=== PATIENT | male | born 1955 | race Caucasian/White ===

== ENCOUNTER 2016-11-11 13:21 | Observation (INO) | payer MEDICAID ==
[~2016-11-11] VITALS: Ht 170.2 cm; Wt 85.0 kg
[~2016-11-11 13:21] MED LIST: AMLO10 PO; BLOOD PRESSURE; COLA100C3 PO; FERR325T PO; FURO40TA PO; GABA300C5 PO; GLIM2TAB PO; Glucometer; LONITEN; METO100T9 PO; MIRA33504 PO; POTA10TA2 PO; PRIN20TA2 PO; [UNRECOGNIZED DRUG - SUPPLY]; [UNRECOGNIZED DRUG - SUPPLY]; [UNRECOGNIZED DRUG - SUPPLY]; [UNRECOGNIZED DRUG - SUPPLY] TOP
[2016-11-11 13:24] VITALS: BP 189/79; PULSE 65; RESP 14; TEMP 98.2; O2SAT 97
[2016-11-11] MEDS ORDERED: MINO10TA PO (15:02)
[2016-11-11] MEDS ORDERED: ZOFR8TAB PO (15:02)
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
[2016-11-11 15:49] LABS: BASOPHIL % 0.8 % (0.0-2.0); EOSINOPHIL # 0.1 TH/MM3 (0-0.4); HEMATOCRIT 30.1 % (39.0-51.0); HEMO FLAGS DIFF FINAL; LYMPH % 23.5 % (9.0-44.0); LYMPHOCYTE # 1.1 TH/MM3 (1.0-4.8); MEAN CELL VOLUME 95.3 FL (80.0-100.0); MEAN CORPUSCULAR HEMOGLOBIN 33.5 PG (27.0-34.0); MEAN CORPUSCULAR HGB CONC 35.2 % (32.0-36.0); MONO % 6.7 % (0.0-8.0); PLATELET COUNT 117 TH/MM3 (150-450); RED BLOOD COUNT 3.16 MIL/MM3 (4.50-5.90); RED CELL DISTRIBUTION WIDTH 15.9 % (11.6-17.2); WHITE BLOOD COUNT 4.5 TH/MM3 (4.0-11.0)
[2016-11-11 15:53] LABS: APTT (PATIENT) 27.6 SEC (24.3-30.1); PROTHROMBIN TIME - PATIENT 11.3 SEC (9.8-11.6)
[2016-11-11 16:11] LABS: ALT (GPT) 36 U/L (12-78); ANION GAP 5 MEQ/L (5-15); AST (GOT) 42 U/L (15-37); BICARBONATE 29.1 MEQ/L (21.0-32.0); BLOOD UREA NITROGEN 44 MG/DL (7-18); CHLORIDE 105 MEQ/L (98-107); GLOMERULAR FILTRATION RATE 14 ML/MIN (>89); POTASSIUM 5.1 MEQ/L (3.5-5.1); SODIUM (NA) 139 MEQ/L (136-145)
[2016-11-11 16:14] LABS: ALKALINE PHOSPHATASE 127 U/L (45-117); TOTAL BILIRUBIN ADULT 0.5 MG/DL (0.2-1.0)
[2016-11-11 16:21] VITALS: RESP 16; O2SAT 97
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
[2016-11-11] MEDS ORDERED: ONDANSETRON HCL 4 MG/2 ML VIAL IVP PRN (18:00)
[2016-11-11] MEDS ORDERED: ACETAMINOPHEN 325 MG TAB PO PRN (18:00)
[2016-11-11] MEDS ORDERED: BISACODYL 10 MG SUPP PR PRN (18:00)
[2016-11-11] MEDS ORDERED: MAGNESIUM HYDROXIDE SUSP 30 ML CUP PO PRN (18:00)
[2016-11-11] MEDS ORDERED: SODIUM CHLORIDE 0.9% FLUSH 5 ML FLUSH FLUSH PRN (18:00)
[2016-11-11] MEDS ORDERED: NALOXONE HCL 0.4 MG/ML AMP IV PRN (18:00)
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
[2016-11-11 18:29] VITALS: O2SAT 96
[2016-11-11] MEDS ORDERED: DEXTROSE 50% IN WATER 50 ML VIAL(D50) IV PUSH PRN (18:45)
[2016-11-11] MEDS ORDERED: GLUCAGON 1 MG/ML VIAL OTHER PRN (18:45)
[2016-11-11] MEDS ORDERED: POLYETHYLENE GLYCOL 17 GM PKG PO PRN (18:45)
[2016-11-11 19:35] VITALS: BP 159/82; PULSE 64; RESP 22; TEMP 98.2; O2SAT 100
[2016-11-11] MEDS: INSULIN ASPART SUPPLEMENTAL SCALE SQ SCH (20:08)
[2016-11-11] MEDS: SODIUM CHLORIDE 0.9% FLUSH 5 ML FLUSH FLUSH SCH (20:23)
[2016-11-11] MEDS: DOCUSATE SODIUM 100 MG CAP PO SCH (20:23)
[2016-11-11] MEDS: FERROUS SULFATE 325 MG (65 MG ELEMENTAL IRON) TAB PO SCH (20:57)
[2016-11-11] MEDS: LISINOPRIL 20 MG TAB PO SCH (20:58)
[2016-11-12] VITALS (9 sets, daily range): BP systolic 149–201; BP diastolic 67–90; PULSE 51–77; RESP 18–22; TEMP 97.4–98.8; O2SAT 97–98
[2016-11-12] MEDS: INSULIN ASPART SUPPLEMENTAL SCALE SQ SCH ×4 (06:38→20:57)
[2016-11-12 07:20] LABS: AUTOMATED NEUTROPHIL # 2.2 TH/MM3 (1.8-7.7); BASOPHIL % 0.7 % (0.0-2.0); EOSINOPHIL # 0.1 TH/MM3 (0-0.4); EOSINOPHIL % 2.9 % (0.0-4.0); HEMATOCRIT 25.8 % (39.0-51.0); LYMPH % 29.8 % (9.0-44.0); LYMPHOCYTE # 1.1 TH/MM3 (1.0-4.8); MEAN CELL VOLUME 88.9 FL (80.0-100.0); MEAN CORPUSCULAR HGB CONC 33.7 % (32.0-36.0); MONO % 8.3 % (0.0-8.0); NEUT % 58.3 % (16.0-70.0); PLATELET COUNT 96 TH/MM3 (150-450); RED CELL DISTRIBUTION WIDTH 15.2 % (11.6-17.2); WHITE BLOOD COUNT 3.7 TH/MM3 (4.0-11.0)
[2016-11-12 07:42] LABS: HEMO FLAGS AUTO DIFF
[2016-11-12 07:50] LABS: BICARBONATE 27.9 MEQ/L (21.0-32.0); POTASSIUM 4.4 MEQ/L (3.5-5.1)
[2016-11-12] MEDS: METOPROLOL SUCCINATE 50 MG EXTENDED RELEASE TAB PO SCH (08:19)
[2016-11-12] MEDS: DOCUSATE SODIUM 100 MG CAP PO SCH ×2 (08:19→20:58)
[2016-11-12] MEDS: SODIUM CHLORIDE 0.9% FLUSH 5 ML FLUSH FLUSH SCH ×2 (08:20→20:58)
[2016-11-12 08:36] LABS: PLATELET ESTIMATE SMEAR LOW (NORMAL); PLATELET MORPHOLOGY NORMAL (NORMAL); SCAN/DIFF AUTO DIFF CONFIRMED
[2016-11-12] MEDS ORDERED: LISINOPRIL 20 MG TAB PO SCH (09:00)
[2016-11-12] MEDS ORDERED: FERROUS SULFATE 325 MG (65 MG ELEMENTAL IRON) TAB PO SCH (09:00)
[2016-11-12] MEDS ORDERED: cloNIDine HCL 0.2 MG TAB PO ONE (10:15)
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
--- NOTE | 2016-11-12 17:09 | HHI.PR ---
Subjective Remarks Follow up for inguinal hernia, CKD stage IV to V, possible need for dialysis. Mr. Bailey is doing well. No acute concerns. Denies any CP, SOB, fever, chills. Objective Vitals Vital Signs Date Time Temp Pulse Resp B/P Pulse Ox O2 Delivery O2 Flow Rate FiO2 11/12/16 15:30 98.0 53 18 156/71 97 11/12/16 11:40 98.2 59 19 173/77 98 11/12/16 08:00 68 11/12/16 07:37 98.0 68 19 201/90 98 11/12/16 04:49 97.4 77 22 152/79 98 11/12/16 00:42 60 11/12/16 00:06 97.4 64 20 149/67 97 11/11/16 19:35 98.2 64 22 159/82 100 11/11/16 18:29 96 21 I/O 11/11/16 11/11/16 11/11/16 11/12/16 11/12/16 11/12/16 06:59 14:59 22:59 06:59 14:59 22:59 Intake Total 32 ml Balance 32 ml Intake Oral Supplement 30 ml IV Total 2 ml # Voids 1 3 Result Diagram: 11/12/16 0602 11/12/16 0632 Imaging Last Impressions Abdomen/Pelvis CT 11/11/16 0000 Signed Impressions: Service Date/Time: Friday, November 11, 2016 17:36 - CONCLUSION: 1. Nodular enlarged liver consistent with probable cirrhosis. 2. Splenomegaly. 3. Moderate amount of ascites within the abdomen and pelvis. 4. Uncomplicated colonic diverticulosis. 5. Small left inguinal hernia containing some ascites. 6. Degenerative changes and multilevel spinal stenoses within the lumbar spine. 7. No acute obstructive uropathy. 8. Cardiomegaly and coronary artery calcifications. Terrance Garza MD Objective Remarks GENERAL: AOX3, NAD, SKIN: Warm and dry. HEAD: Normocephalic. EYES: No scleral icterus. No injection or drainage. NECK: Supple, trachea midline. No JVD or lymphadenopathy. CARDIOVASCULAR: Regular rate and rhythm without murmurs, gallops, or rubs. RESPIRATORY: Breath sounds equal bilaterally. No accessory muscle use. GASTROINTESTINAL: Abdomen soft, non-tender, nondistended. MUSCULOSKELETAL: No cyanosis. Has trace edema. BACK: Nontender without obvious deformity. No CVA tenderness. Procedures None. A/P Problem List: (1) CKD (chronic kidney disease), stage IV ICD Code: N18.4 Status: Acute (2) GERD (gastroesophageal reflux disease) ICD Code: K21.9 Status: Chronic (3) Anemia ICD Code: D64.9 Status: Chronic (4) HCV (hepatitis C virus) ICD Code: B19.20 Status: Chronic (5) Hypertension ICD Code: I10 Status: Chronic (6) DM type 2 (diabetes mellitus, type 2) ICD Code: E11.9 Status: Chronic (7) Inguinal hernia of left side without obstruction or gangrene ICD Code: K40.90 Status: Acute Assessment and Plan Patient is a 61 year old male who came in to the hospital per advice of his disaster or damage control specialist Dr. Goddard. Patient with stage IV chronic kidney disease and needs to have hemodialysis initiated. Admitted to observation unit for further evaluation. CT of the abdomen/ pelvis showed nodular enlarged liver consistent with probable cirrhosis. Splenomegaly. Moderate amount of ascites with abdomen and pelvis. Uncomplicated colonic diverticulosis. Small left inguinal hernia containing some ascites. Degenerative changes and multilevel spinal stenosis within lumbar spine. No acute obstructive uropathy. Cardiomegaly and coronary artery calcifications. Chronic kidney disease, stage IV, for dialysis- hemodialysis versus peritoneal dialysis Inguinal hernia - [employer] consulted - Discussed with Dr. Ramirez today. No emergent need for dialysis. - General surgery consult pending with regards to inguinal hernia and possible need for PD catheter now or in future. HTN - will restart home meds for now patient on metoprolol 100 mg ER daily, Lisinopril 20 mg daily, Norvasc 10 mg daily - Patient states that she takes metoprolol and Norvasc in the morning and lisinopril at night. - Clonidine PRN. DM 2 - insulin sliding scale, monitor Accu-Cheks - Will start basal insulin depending on trend of Accu-Cheks. So blood glucose well control. - Significant proteinuria Anemia - has been getting iron injections - Monitor CBC. Hep C, cirrhosis - follow in the outpatient Left inguinal hernia - will consult surgery, possible mesh placement, inpatient vs outpatient setting - CT showed small left inguinal hernia Full code. DVT prop SCDs Discharge Plan: If Inguinal hernia can be addressed in the outpatient setting, patient can be discharged tomorrow 11/13/2016. Eren Marshall DO Nov 12, 2016 17:09
[2016-11-12] MEDS: FERROUS SULFATE 325 MG (65 MG ELEMENTAL IRON) TAB PO SCH (20:58)
[2016-11-12] MEDS: LISINOPRIL 20 MG TAB PO SCH (20:58)
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
[2016-11-13 00:56] VITALS: BP 178/88; PULSE 90; RESP 18; TEMP 98.8; O2SAT 98
[2016-11-13] MEDS: cloNIDine HCL 0.1 MG TAB PO PRN ×2 (01:11→15:47)
[2016-11-13 04:40] VITALS: BP 147/77; PULSE 87; RESP 21; TEMP 98; O2SAT 98
[2016-11-13 05:50] LABS: ANION GAP 7 MEQ/L (5-15); BICARBONATE 27.6 MEQ/L (21.0-32.0); BLOOD UREA NITROGEN 46 MG/DL (7-18); CHLORIDE 106 MEQ/L (98-107); GLOMERULAR FILTRATION RATE 16 ML/MIN (>89); POTASSIUM 4.5 MEQ/L (3.5-5.1); SODIUM (NA) 141 MEQ/L (136-145); TRANSFERRIN IRON PROFILE 219 MG/DL (200-360)
[2016-11-13] MEDS: INSULIN ASPART SUPPLEMENTAL SCALE SQ SCH ×3 (06:30→16:21)
[2016-11-13 07:27] VITALS: BP 183/73; PULSE 53; RESP 18; TEMP 98.1; O2SAT 98
[2016-11-13] MEDS: DOCUSATE SODIUM 100 MG CAP PO SCH (08:19)
[2016-11-13] MEDS: SODIUM CHLORIDE 0.9% FLUSH 5 ML FLUSH FLUSH SCH (08:19)
[2016-11-13] MEDS: METOPROLOL SUCCINATE 50 MG EXTENDED RELEASE TAB PO SCH (08:19)
--- NOTE | 2016-11-13 08:50 | HHI.NPPN ---
Subjective Renal Failure: Chronic, Stage IV Interval History Sitting up in bed. Uneventful night. Renal function is better. (Adelaide Reveles) Review of Systems General General Remarks no acute concerns (Adelaide Reveles) Objective Data Data 11/12/16 11/13/16 19:00 07:00 Intake Total 32 ml Balance 32 ml Intake Oral Supplement 30 ml IV Total 2 ml # Voids 3 1 Vital Signs Date Time Temp Pulse Resp B/P Pulse Ox O2 Delivery O2 Flow Rate FiO2 11/13/16 07:27 98.1 53 18 183/73 98 11/13/16 05:18 21 11/13/16 04:40 98.0 87 21 147/77 98 11/13/16 00:56 98.8 90 18 178/88 98 11/12/16 22:42 51 11/12/16 21:06 98.8 55 18 195/88 98 11/12/16 15:30 98.0 53 18 156/71 97 11/12/16 11:40 98.2 59 19 173/77 98 (Adelaide Reveles) -: 11/12/16 0602 11/13/16 0505 Imaging Last 72 hours Impressions Abdomen/Pelvis CT 11/11/16 0000 Signed Impressions: Service Date/Time: Friday, November 11, 2016 17:36 - CONCLUSION: 1. Nodular enlarged liver consistent with probable cirrhosis. 2. Splenomegaly. 3. Moderate amount of ascites within the abdomen and pelvis. 4. Uncomplicated colonic diverticulosis. 5. Small left inguinal hernia containing some ascites. 6. Degenerative changes and multilevel spinal stenoses within the lumbar spine. 7. No acute obstructive uropathy. 8. Cardiomegaly and coronary artery calcifications. Terrance Garza MD (Adelaide Reveles) Physical Exam General Appearance: Well Developed, Well Nourished, No Acute Distress (Adelaide Reveles) Eyes Eye Exam: Pupils Equal (Adelaide Reveles) Throat Throat Exam: Oral Mucosa Reardan & Moist (Adelaide Reveles) Neck Neck Exam: Neck Supple (Adelaide Rveeles) Pulmonary Resp Exam: Clear Bilaterally, Breath Sounds Equal, No Distress (Adelaide Reveles) Cardiology CV Exam: Regular, Normal Sinus Rhythm (Adelaide Reveles) Gastrointestinal/Abdomen GI Exam: Soft, Non-Tender, Bowel Sounds Present (Adelaide Reveles) Musculoskeletal MS Exam: Joints Intact, Normal Tone (Adelaide Reveles) Integumentary Skin Exam: Clear, Warm, Dry (Adelaide Reveles) Extremeties Extremities Exam: No Edema, Pedal Pulses Palpable (Adelaide Reveles) Neurologic Neuro Exam: Alert, Awake, Oriented, Speech Clear, Moving All Extremities ( Adelaide Reveles) Psychiatric Psych Exam: Appropriate Responses (Adelaide Reveles) Assessment/Plan Discussed Condition With: Patient Problem List: (1) Chronic kidney disease (CKD), stage IV (severe) Plan: renal function has improved since admission although he has advanced renal dysfunction with heavy proteinuria, nearly 4 g underlying diabetic nephropathy suspected he will eventually need dialysis, but it is not imminent at this time surgery has evaluated, do not recommend placing PD catheter given ascites, liver disease, and hernia also unsure if he is physically/mentally able to perform PD on his own his potassium and bicarb level remain stable not demonstrating fluid overload in the meantime, low protein diet he does not need IVF I will have vascular evaluate for AVF placement, vein mapping ordered protect left arm from IV sticks, BP measurements he should be on JAKE or ARB at discharge avoid nephrotoxins (2) Anemia Plan: low iron stores, will give a dose of Venofer (3) Inguinal hernia of left side without obstruction or gangrene Plan: general surgery has evaluated, potentially have outpatient repair (4) DM type 2 (diabetes mellitus, type 2) Plan: diet controlled monitor glucose (5) Hypertension Plan: Blood pressure acceptable continue current medications (Adelaide Reveles) Plan patient was seen and examined. Discussed with Dr. Whyte. He has been consulted for AVF placement. General surgery note reviewed and appreciated. No immediate need for dialysis. (Yann Palacios MD) Adelaide Reveles Nov 13, 2016 08:50 Yann Palacios MD Nov 14, 2016 08:09
[2016-11-13] MEDS ORDERED: IRON SUCROSE INJ 100 MG in SODIUM CHLORIDE 0.9% INJ 100 ML IV ONE (10:00)
--- NOTE | 2016-11-13 10:43 | HHI.PR ---
Subjective Remarks Follow up for CKD Stage IV, inguinal hernia in a patient with cirrhosis. Mr. Bailey is doing well. Denies any acute concerns. Denies any CP, SOB, fever, chills. Objective Vitals Vital Signs Date Time Temp Pulse Resp B/P Pulse Ox O2 Delivery O2 Flow Rate FiO2 11/13/16 07:27 98.1 53 18 183/73 98 11/13/16 05:18 21 11/13/16 04:40 98.0 87 21 147/77 98 11/13/16 00:56 98.8 90 18 178/88 98 11/12/16 22:42 51 11/12/16 21:06 98.8 55 18 195/88 98 11/12/16 15:30 98.0 53 18 156/71 97 11/12/16 11:40 98.2 59 19 173/77 98 I/O 11/12/16 11/12/16 11/12/16 11/13/16 11/13/16 11/13/16 07:00 15:00 23:00 07:00 15:00 23:00 Intake Total 32 ml Balance 32 ml Intake Oral Supplement 30 ml IV Total 2 ml # Voids 3 1 Result Diagram: 11/12/16 0602 11/13/16 0505 Imaging Last Impressions Upper Extremity Ultrasound 11/13/16 1026 Signed Impressions: Service Date/Time: Sunday, November 13, 2016 12:38 - CONCLUSION: There is occlusive thrombus within the right cephalic vein at the level of the mid forearm in the region of the PICC line and occlusive thrombus within the left mid cephalic vein. Terrance Garza MD Abdomen/Pelvis CT 11/11/16 0000 Signed Impressions: Service Date/Time: Friday, November 11, 2016 17:36 - CONCLUSION: 1. Nodular enlarged liver consistent with probable cirrhosis. 2. Splenomegaly. 3. Moderate amount of ascites within the abdomen and pelvis. 4. Uncomplicated colonic diverticulosis. 5. Small left inguinal hernia containing some ascites. 6. Degenerative changes and multilevel spinal stenoses within the lumbar spine. 7. No acute obstructive uropathy. 8. Cardiomegaly and coronary artery calcifications. Terrance Garza MD Objective Remarks GENERAL: AOX3, NAD, SKIN: Warm and dry. HEAD: Normocephalic. EYES: No scleral icterus. No injection or drainage. NECK: Supple, trachea midline. No JVD or lymphadenopathy. CARDIOVASCULAR: Regular rate and rhythm without murmurs, gallops, or rubs. RESPIRATORY: Breath sounds equal bilaterally. No accessory muscle use. GASTROINTESTINAL: Abdomen soft, non-tender, nondistended. MUSCULOSKELETAL: No cyanosis. Has trace edema. BACK: Nontender without obvious deformity. No CVA tenderness. Procedures None. A/P Problem List: (1) CKD (chronic kidney disease), stage IV ICD Code: N18.4 Status: Acute (2) GERD (gastroesophageal reflux disease) ICD Code: K21.9 Status: Chronic (3) Anemia ICD Code: D64.9 Status: Chronic (4) HCV (hepatitis C virus) ICD Code: B19.20 Status: Chronic (5) Hypertension ICD Code: I10 Status: Chronic (6) DM type 2 (diabetes mellitus, type 2) ICD Code: E11.9 Status: Chronic (7) Inguinal hernia of left side without obstruction or gangrene ICD Code: K40.90 Status: Acute Assessment and Plan Patient is a 61 year old male who came in to the hospital per advice of his granite polisher Dr. Goddard. Patient with stage IV chronic kidney disease and needs to have hemodialysis initiated. Admitted to observation unit for further evaluation. CT of the abdomen/ pelvis showed nodular enlarged liver consistent with probable cirrhosis. Splenomegaly. Moderate amount of ascites with abdomen and pelvis. Uncomplicated colonic diverticulosis. Small left inguinal hernia containing some ascites. Degenerative changes and multilevel spinal stenosis within lumbar spine. No acute obstructive uropathy. Cardiomegaly and coronary artery calcifications. Chronic kidney disease, stage IV, for dialysis- hemodialysis versus peritoneal dialysis Inguinal hernia - Structural Metal Worker consulted - No emergent need for dialysis. - General surgery (Dr. Coronado) consulted and will proceed with surgery if medically cleared for surgery. - Patient's MELD Score is 19 (19.6% estimated 3 month mortality) based on Creatinine 3.85, Bilirubin 0.5, INR 1.0 and Sodium 141. Since MELD score is > 15, We would not recommend hernia surgery or Non-emergent surgery at this point. - Similarly, Child-Tavares score 9 with a abdominal surgery sergio-operative mortality 30%. HTN - will restart home meds for now patient on metoprolol 100 mg ER daily, Lisinopril 20 mg daily, Norvasc 10 mg daily - Patient states that she takes metoprolol and Norvasc in the morning and lisinopril at night. - Clonidine PRN. DM 2 - insulin sliding scale, monitor Accu-Cheks - Will start basal insulin depending on trend of Accu-Cheks. So blood glucose well control. - Significant proteinuria Anemia - has been getting iron injections - Monitor CBC. Hep C, cirrhosis - follow in the outpatient Left inguinal hernia - will consult surgery, possible mesh placement, inpatient vs outpatient setting - CT showed small left inguinal hernia Full code. DVT prop SCDs I discussed with Dr. Donell Coronado (General surgery) around 5:30PM. We agreed that with MELD Score of 19, it would be a high risk to do non-emergent surgery such as hernia repair. Risk is higher with open approach which is what Dr. Coronado would do. Discussed with Vascular surgery earlier - they plan to follow patient in the outpatient setting for AV fistula. Will discharge patient home with follow up with Vascular surgery. Eren Marshall DO Nov 13, 2016 10:43
[2016-11-13] MEDS ORDERED: FURO40TA PO (10:49)
[2016-11-13 11:20] VITALS: BP 161/71; PULSE 48; RESP 18; TEMP 97.3; O2SAT 96
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
[2016-11-13 15:37] VITALS: BP 192/75; PULSE 54; RESP 18; TEMP 97.7; O2SAT 98
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
--- NOTE | 2016-11-13 17:42 | HHI.DS ---
Discharge Summary Admission Date Nov 11, 2016 at 17:53 Discharge Date: Nov 13, 2016 Admitting Diagnosis End-stage renal disease, hemodialysis to be initiated (1) CKD (chronic kidney disease), stage IV ICD Code: N18.4 Diagnosis: Principal (2) GERD (gastroesophageal reflux disease) ICD Code: K21.9 (3) Anemia ICD Code: D64.9 (4) HCV (hepatitis C virus) ICD Code: B19.20 (5) Hypertension ICD Code: I10 (6) DM type 2 (diabetes mellitus, type 2) ICD Code: E11.9 (7) Inguinal hernia of left side without obstruction or gangrene ICD Code: K40.90 Diagnosis: Principal Procedures None. Brief History - From Admission Patient is a 61 year old male who came in to the hospital per advice of his distributor of directories Dr. Goddard. Patient with stage IV chronic kidney disease and needs to have hemodialysis initiated. Patient complains of left groin pain that has been bothering him 2 weeks but hurting him more often now than usual, rated 8/10 aggravated by standing he takes Tylenol for it or if he is resting it gets relief. Reports that he has some constipation, have gone to have a bowel movement today however he thinks it's not enough. He takes prune juice at home. Patient reports he has liver cirrhosis, hep C, diabetes, and hypertension. Denies SOB/ dyspnea. Denies chest pain, palpitations, headaches , dizziness. Denies fevers, chills, n/v/d. Labs reviewed. CBC anemia 10.6/30.1, as per patient and he gets iron shots weekly. BUS and 44, creatinine 4.31, estimated GFR 14, calcium 8.4, elevated AST 42, alkaline phosphatase elevated 127. CT of the abdomen/ pelvis showed nodular enlarged liver consistent with probable cirrhosis. Splenomegaly. Moderate amount of ascites with abdomen and pelvis. Uncomplicated colonic diverticulosis. Small left inguinal hernia containing some ascites. Degenerative changes and multilevel spinal stenosis within lumbar spine. No acute obstructive uropathy. Cardiomegaly and coronary artery calcifications. CBC/BMP: 11/12/16 0602 11/13/16 0505 Significant Findings Laboratory Tests Test 11/11/16 11/12/16 11/12/16 11/12/16 15:00 06:02 06:32 12:30 Red Blood Count 3.16 MIL/MM3 2.90 MIL/MM3 (4.50-5.90) (4.50-5.90) Hemoglobin 10.6 GM/DL 8.7 GM/DL (13.0-17.0) (13.0-17.0) Hematocrit 30.1 % 25.8 % (39.0-51.0) (39.0-51.0) Platelet Count 117 TH/MM3 96 TH/MM3 (150-450) (150-450) Blood Urea Nitrogen 44 MG/DL (7-18) 42 MG/DL (7-18) Creatinine 4.31 MG/DL 4.04 MG/DL (0.60-1.30) (0.60-1.30) Estimat Glomerular Filtration 14 ML/MIN (>89) 15 ML/MIN (>89) Rate Calcium Level 8.4 MG/DL 7.9 MG/DL (8.5-10.1) (8.5-10.1) Aspartate Amino Transf 42 U/L (15-37) (AST/SGOT) Alkaline Phosphatase 127 U/L (45-117) White Blood Count 3.7 TH/MM3 (4.0-11.0) Monocytes (%) (Auto) 8.3 % (0.0-8.0) Platelet Estimate LOW (NORMAL) Random Glucose 72 MG/DL (74-106) Urine Microalbumin/Creatinine 3952 MG/G CRE Ratio (0-30) Test 11/13/16 05:05 Blood Urea Nitrogen 46 MG/DL (7-18) Creatinine 3.85 MG/DL (0.60-1.30) Estimat Glomerular Filtration 16 ML/MIN (>89) Rate Random Glucose 68 MG/DL (74-106) Calcium Level 7.8 MG/DL (8.5-10.1) Iron Level 50 MCG/DL (65-175) Percent Iron Saturation 16.3 % (20-50) Albumin 2.7 GM/DL (3.4-5.0) Imaging Last Impressions Upper Extremity Ultrasound 11/13/16 1026 Signed Impressions: Service Date/Time: Sunday, November 13, 2016 12:38 - CONCLUSION: There is occlusive thrombus within the right cephalic vein at the level of the mid forearm in the region of the PICC line and occlusive thrombus within the left mid cephalic vein. Terrance Garza MD Abdomen/Pelvis CT 11/11/16 0000 Signed Impressions: Service Date/Time: Friday, November 11, 2016 17:36 - CONCLUSION: 1. Nodular enlarged liver consistent with probable cirrhosis. 2. Splenomegaly. 3. Moderate amount of ascites within the abdomen and pelvis. 4. Uncomplicated colonic diverticulosis. 5. Small left inguinal hernia containing some ascites. 6. Degenerative changes and multilevel spinal stenoses within the lumbar spine. 7. No acute obstructive uropathy. 8. Cardiomegaly and coronary artery calcifications. Terrance Garza MD PE at Discharge GENERAL: AOX3, NAD, SKIN: Warm and dry. HEAD: Normocephalic. EYES: No scleral icterus. No injection or drainage. NECK: Supple, trachea midline. No JVD or lymphadenopathy. CARDIOVASCULAR: Regular rate and rhythm without murmurs, gallops, or rubs. RESPIRATORY: Breath sounds equal bilaterally. No accessory muscle use. GASTROINTESTINAL: Abdomen soft, non-tender, nondistended. MUSCULOSKELETAL: No cyanosis. Has trace edema. BACK: Nontender without obvious deformity. No CVA tenderness. Pt update on day of discharge Mr. Bailey is doing well. No acute concerns. Denies any fever, chills. Hospital Course Patient is a 61 year old male who came in to the hospital per advice of his distributor of directories Dr. Goddard. Patient with stage IV chronic kidney disease and needs to have hemodialysis initiated. Admitted to observation unit for further evaluation. CT of the abdomen/ pelvis showed nodular enlarged liver consistent with probable cirrhosis. Splenomegaly. Moderate amount of ascites with abdomen and pelvis. Uncomplicated colonic diverticulosis. Small left inguinal hernia containing some ascites. Degenerative changes and multilevel spinal stenosis within lumbar spine. No acute obstructive uropathy. Cardiomegaly and coronary artery calcifications. Chronic kidney disease, stage IV, for dialysis- hemodialysis versus peritoneal dialysis Inguinal hernia - Nursing Associate consulted - No emergent need for dialysis. - General surgery (Dr. Coronado) consulted and will proceed with surgery if medically cleared for surgery. - Patient's MELD Score is 19 (19.6% estimated 3 month mortality) based on Creatinine 3.85, Bilirubin 0.5, INR 1.0 and Sodium 141. Since MELD score is > 15, We would not recommend hernia surgery or Non-emergent surgery at this point. - Similarly, Child-Tavares score 9 with a abdominal surgery sergio-operative mortality 30%. HTN - will restart home meds for now patient on metoprolol 100 mg ER daily, Lisinopril 20 mg daily, Norvasc 10 mg daily - Patient states that she takes metoprolol and Norvasc in the morning and lisinopril at night. - Clonidine PRN. DM 2 - insulin sliding scale, monitor Accu-Cheks - Will start basal insulin depending on trend of Accu-Cheks. So blood glucose well control. - Significant proteinuria Anemia - has been getting iron injections Hep C, cirrhosis - follow in the outpatient Left inguinal hernia - will consult surgery, possible mesh placement, inpatient vs outpatient setting - CT showed small left inguinal hernia Full code. DVT prop SCDs I discussed with Dr. Donell Coronado (General surgery) around 5:30PM. We agreed that with MELD Score of 19, it would be a high risk to do non-emergent surgery such as hernia repair. Risk is higher with open approach which is what Dr. Coronado would do. Discussed with Vascular surgery earlier - they plan to follow patient in the outpatient setting for AV fistula. Will discharge patient home with follow up with Vascular surgery. Pt Condition on Discharge: Good Discharge Disposition: Discharge Home Discharge Time: > 30 minutes Discharge Instructions DIET: Follow Instructions for: Low Protein Diet Activities you can perform: Regular-No Restrictions Follow up Referrals: Nephrology - 1 Week with Wing Goddard MD PCP Follow-up - 1 Week Surgical - 2 Weeks with Donell Coronado MD Vascular Surgery - 1 Week with Ra Whyte V. DO New Medications: Oxycodone-Acetaminophen (Percocet) 5-325 mg Tab 1 TAB PO Q6H PRN PAIN #15 Ref 0 TAB Changed Medications: Furosemide (Furosemide) 40 Mg Tab 40 MG PO DAILY Fluid #30 Ref 0 TAB (Changed from: 80 MG) Continued Medications: Amlodipine (Norvasc) 10 Mg Tab 10 MG PO DAILY Blood Pressure Management #30 Ref 0 TAB Docusate Sodium (Colace) 100 Mg Cap 100 MG PO BID Constipation #60 Ref 0 CAP Ferrous Sulfate (Ferrous Sulfate) 325 Mg Tab 325 MG PO DAILY Nutritional Supplement #30 Ref 0 TAB Lisinopril (Prinivil) 20 Mg Tab 20 MG PO DAILY Blood Pressure Management #30 Ref 0 TAB Metoprolol Succinate ER 24 HR (Metoprolol Succinate ER 24 HR) 100 Mg Tab 100 MG PO DAILY #30 Ref 0 TAB Minoxidil (Minoxidil) 10 Mg Tab 40 MG PO DAILY Blood Pressure Management #30 Ref 0 TAB Ondansetron (Zofran) 8 Mg Tab 8 MG PO DAILY PRN NAUSEA OR VOMITING Ref 0 TAB Polyethylene Glycol 3350 Powder (Miralax Powder) 17 Gm Powd 17 GM PO DAILY Mix and dissolve one measuring cap-ful (17 grams) in water or juice. PRN Constipation #1 Ref 0 BOTTLE Potassium Chloride ER (Potassium Chloride ER) 10 Meq Tab 10 MEQ PO DAILY Take only when taking Lasix #30 Ref 0 TAB ([AccuChk Test Strips]) 1 BOX To check blood sugar level ([Blood Pressure Kit]) 1 KIT DAILY Check blood pressure daily ([Diabetic Sneaker]) 1 Yearly ([Gluco Test Strips]) 1 BOX DAILY To check blood sugar level ([Glucometer]) 1 DAILY To check blood sugar level ([loniten]) 10 MG Eren Marshall DO Nov 13, 2016 17:42
[2016-11-13] MEDS ORDERED: PERC5TAB12 PO (19:41)
--- NOTE | 2016-11-13 19:44 | HHI.PR ---
Addendum to Inpatient Note Addendum Reason: Additional Documentation Additional Information wrote discharge prescription for percocet 5/325 po q6hrs prn for pain - total 15 tabs - as requested by pt's daytime [facility] Erich Serna MD Nov 13, 2016 19:44
--- NOTE | 2016-11-13 21:52 | HHI.PR ---
Subjective Subjective Notes no acute issues, mild pain in groin, asymptomatic when lying flat Objective Vitals/I&O Vital Signs Date Time Temp Pulse Resp B/P Pulse Ox O2 Delivery O2 Flow Rate FiO2 11/13/16 15:37 97.7 54 18 192/75 98 11/13/16 05:18 21 11/11/16 16:21 Room Air Labs Laboratory Tests Test 11/13/16 05:05 Sodium Level 141 Potassium Level 4.5 Chloride Level 106 Carbon Dioxide Level 27.6 Anion Gap 7 Blood Urea Nitrogen 46 Creatinine 3.85 Estimat Glomerular Filtration 16 Rate Random Glucose 68 Calcium Level 7.8 Phosphorus Level 4.7 Iron Level 50 Total Iron Binding Capacity 307 Percent Iron Saturation 16.3 Albumin 2.7 Cardiovascular: Regular Lungs: Clear Abdomen: Other (left inguinal hernia, reducible, mild ttp) A/P Assessment and Plan multiple medical issues, cirrhosis MELD score 19, reducible LIH, Need of dialysis access plan ok for renal/hepatic diet discussed with primary Dr. Marshall- patient is high risk for surgery with MELD 19 will defer elective surgery recommend support strap for hernia will continue non operative treatment discussed with patient Donell Coronado MD Nov 13, 2016 21:52
[2017-02-13] MEDS ORDERED: LACT10SO PO (06:25)
[2017-04-02] MEDS ORDERED: FURO40TA PO (09:16)
[2017-04-02] MEDS ORDERED: FERR200T PO (09:20)
[2017-04-02] MEDS ORDERED: GABA100C4 PO (09:22)
[2017-04-02] MEDS ORDERED: PROC20005 SQ (09:49)
== END 2016-11-14 00:12 | disposition home or self-care (01) ==
LOC: NEPE 13:21 → NEDA 17:53 → NEPGCP 19:27
PROVIDERS: ADMIT Hospitalist; ATTEND Hospitalist
DX: N18.6 End stage renal disease (principal); I13.11 Hypertensive heart and chronic kidney disease without heart failure, with stage 5 chronic kidney disease, or end stage renal disease; I25.10 Atherosclerotic heart disease of native coronary artery without angina pectoris; E11.21 Type 2 diabetes mellitus with diabetic nephropathy; B19.20 Unspecified viral hepatitis C without hepatic coma; D64.9 Anemia, unspecified; K21.9 Gastro-esophageal reflux disease without esophagitis; I82.613 Acute embolism and thrombosis of superficial veins of upper extremity, bilateral; K40.90 Unilateral inguinal hernia, without obstruction or gangrene, not specified as recurrent; K57.30 Diverticulosis of large intestine without perforation or abscess without bleeding; K74.60 Unspecified cirrhosis of liver; R18.8 Other ascites; K59.00 Constipation, unspecified; H91.90 Unspecified hearing loss, unspecified ear; M48.06 Spinal stenosis, lumbar region; Z72.0 Tobacco use; Z99.2 Dependence on renal dialysis
CPT/HCPCS: 74176; 80048; 80053; 80069; 82043; 82948; 83540; 83550; 85025; 85610; 85730; 93970; 93998; 99284; G0378; J1756; J1815

== ENCOUNTER → 2016-12-10 | Day surgery (SDC) | payer MEDICAID ==
[~2016-12-10] VITALS: Ht 170.2 cm; Wt 84.4 kg
[~2016-12-10] MED LIST changes: +ACET500T3 PO; +AMLO10TA2 PO; +DOCU100C PO; +FAMOTIDINE 20 MG/2 ML VIAL ONE; +FERR1TAB7 PO; +FERR200T PO; +GABA100C4 PO; -GABA300C5 PO; -GLIM2TAB PO; +HEPARIN SODIUM - IV 10,000 UNITS/10 ML VIAL ONE; +HEPARIN SODIUM - SQ 10,000 UNITS/ML VIAL ONE; +INSULIN HUMAN REGULAR 1,000 UNITS/10 ML VIAL SQ PRN; +LACT10SO PO; +LACTATED RINGER'S 1000 ML IV SCH; +LISI-515 PO; +METOCLOPRAMIDE HCL 10 MG/2 ML VIAL ONE; +METOPROLOL TARTRATE 25 MG TAB PO PRN; +MIDAZOLAM HCL 5 MG/5 ML VIAL ONE; +MINO10TA PO; +NEOSTIGMINE METHYLSULFATE 10 MG/10 ML VIAL IV PUSH ONE; +OXYC1TAB63 PO; +PERC5TAB12 PO; +PHENYLEPH/NS 1000 MCG/10 ML SYR IV ONE; +POTA10CA PO; +PROC20005 SQ; +PROPOFOL 200 MG/20 ML AMP IV ONE; +ROPIVACAINE 0.5% PF INJ 30 ML VIAL NB ONE; +SODIUM CHLORID 0.9% 500 ML INJ 500 ML IV ONE; +SODIUM CHLORID 0.9% 500 ML IV SCH; +VANCOMYCIN HCL 1000 MG VIAL ONE; +ZOFR8TAB PO; +ePHEDrine/NS 25 MG/5 ML SYR IV ONE; +fentaNYL CITRATE 250 MCG/5 ML AMP ONE
[2016-12-10 07:38] VITALS: BP 169/76; PULSE 58; RESP 20; TEMP 98; O2SAT 99
[2016-12-10 09:09] LABS: AUTOMATED NEUTROPHIL # 3.1 TH/MM3 (1.8-7.7); BASOPHIL % 0.6 % (0.0-2.0); EOSINOPHIL # 0.1 TH/MM3 (0-0.4); EOSINOPHIL % 2.8 % (0.0-4.0); HEMATOCRIT 27.1 % (39.0-51.0); HEMO FLAGS DIFF FINAL; LYMPH % 21.6 % (9.0-44.0); MEAN CELL VOLUME 91.1 FL (80.0-100.0); MEAN CORPUSCULAR HEMOGLOBIN 32.5 PG (27.0-34.0); MEAN CORPUSCULAR HGB CONC 35.7 % (32.0-36.0); MONO % 8.5 % (0.0-8.0); NEUT % 66.5 % (16.0-70.0); PLATELET COUNT 116 TH/MM3 (150-450); RED BLOOD COUNT 2.97 MIL/MM3 (4.50-5.90); RED CELL DISTRIBUTION WIDTH 16.2 % (11.6-17.2); WHITE BLOOD COUNT 4.7 TH/MM3 (4.0-11.0)
[2016-12-10 09:20] LABS: APTT (PATIENT) 27.7 SEC (24.3-30.1); INTERNATIONAL NORMALIZED RATIO 1.1 RATIO; PROTHROMBIN TIME - PATIENT 11.7 SEC (9.8-11.6)
[2016-12-10 09:30] LABS: BICARBONATE 28.2 MEQ/L (21.0-32.0); POTASSIUM 4.6 MEQ/L (3.5-5.1)
--- NOTE | 2016-12-10 09:30 | RADRPT ---
EXAM DATE/TIME: 12/10/2016 08:18 [facility] COMPARISON: CHEST SINGLE AP, May 26, 2015, 10:31. INDICATIONS : Evaluate for pneumonia, pneumothorax or communicable disease. Pre-op AV fistula surgery 12/10/2016. MEDICAL HISTORY: Hypertension. SURGICAL HISTORY: None. ENCOUNTER: Initial ACUITY: 1 day PAIN SCORE: 0/10 LOCATION: Bilateral chest FINDINGS: The heart is stable. The pulmonary vascular patter is normal. The lungs are clear. CONCLUSION: No acute cardiopulmonary disease. Terrance Garza MD on December 10, 2016 at 9:12 Board Certified Radiologist. This report was verified electronically.
[2016-12-10 09:31] LABS: BLOOD, URINE NEG (NEG); COMMENT (UR) CULT NOT INDICATED; CULTURE IF INDICATED CULT NOT INDICATED; GLUCOSE,URINE NEG (NEG); KETONE, URINE NEG (NEG); NITRITE,URINE NEG (NEG); PH, URINE 6.5 (5.0-8.5); SQUAMOUS EPITHELIAL CELL URINE <1 /hpf (0-5); URINE COLOR YELLOW (YELLW/STRAW)
[2016-12-10 16:40] VITALS: BP 151/68; PULSE 70; RESP 16; TEMP 97.4; O2SAT 98
--- NOTE | 2016-12-10 17:58 | EKG ---
Date Performed: 12/10/2016 Time Performed: 08:11:49 PTAGE: 61 years EKG: SINUS BRADYCARDIA MODERATE INTRAVENTRICULAR CONDUCTION DELAY NONSPECIFIC T-WAVE ABNORMALITY Since previous tracing, no significant change noted ABNORMAL ECG PREVIOUS TRACING : 05/26/2015 10.13 DOCTOR: Gamal Kaminski Interpretating Date/Time 12/10/2016 17:55:56
--- NOTE | 2016-12-11 07:30 | MP ---
cc: SRAVAN GARRISON DATE OF OPERATION 12/10/2016 PREOPERATIVE DIAGNOSIS End-stage renal disease. POSTOPERATIVE DIAGNOSIS End-stage renal disease. PROCEDURE Right upper extremity radiocephalic A-V fistula. SURGEON DO Pato IV FLUIDS 300 cc crystalloid. ESTIMATED BLOOD LOSS Minimal. URINE OUTPUT Not calculated. SEDATION Supraclavicular nerve block and general endotracheal anesthesia. PROCEDURE The patient's right upper extremity was prepped and draped in a sterile fashion after beginning 1 gram of IV vancomycin with history of indwelling catheter long-term. Incision was made over the wrist on the lateral aspect. This was about 3 cm and longitudinal. This was made with a scalpel, then electrocautery dissection was made down to the radial artery and the cephalic vein. The cephalic vein side branches were ligated with 2-0 and 4-0 silks as needed. The distal radial artery was quite calcified but intact. It was mobilized with two vessel loops. I did give the patient 3000 units of heparin. I made a longitudinal incision of the radial artery with an 11-blade and Novak scissors. The distal cephalic vein was divided and the distal cephalic vein was ligated with a 2-0 tie. I performed an end-to-side anastomosis with my wrist cephalic vein to the radial artery. There was a good thrill at the end of the case that could be palpated. The patient still had adequate palmar arch signals well. I closed in layers with a 2-0 vicryl and 4-0 monocryl stitch with dermabond applied to the incision. The patient tolerated procedure well. DO MARIO Guaman/DONA /3:08 PM /7:23 AM [facility]
== END | disposition home or self-care (01) ==
LOC: HSDC 07:29
PROVIDERS: ATTEND Surgery
DX: N18.6 End stage renal disease (principal); I12.0 Hypertensive chronic kidney disease with stage 5 chronic kidney disease or end stage renal disease; E78.5 Hyperlipidemia, unspecified; J44.9 Chronic obstructive pulmonary disease, unspecified
CPT/HCPCS: 01844; 36818; 64415; 71010; 76937; 80048; 81001; 85025; 85610; 85730; 86850; 86900; 86901; 93005; J1644; J2250; J2370; J2710; J2765; J2795; J3010; J3370; J7040

== ENCOUNTER 2017-01-09 09:44 | Emergency (ER) | payer MEDICAID ==
[~2017-01-09] VITALS: Ht 170.2 cm; Wt 84.0 kg
[~2017-01-09 09:44] MED LIST changes: -ACET500T3 PO; -AMLO10TA2 PO; -COLA100C3 PO; -DOCU100C PO; -FAMOTIDINE 20 MG/2 ML VIAL ONE; -FERR1TAB7 PO; -FERR200T PO; -GABA100C4 PO; -HEPARIN SODIUM - IV 10,000 UNITS/10 ML VIAL ONE; -HEPARIN SODIUM - SQ 10,000 UNITS/ML VIAL ONE; -INSULIN HUMAN REGULAR 1,000 UNITS/10 ML VIAL SQ PRN; -LACT10SO PO; -LACTATED RINGER'S 1000 ML IV SCH; -LISI-515 PO; -METOCLOPRAMIDE HCL 10 MG/2 ML VIAL ONE; -METOPROLOL TARTRATE 25 MG TAB PO PRN; -MIDAZOLAM HCL 5 MG/5 ML VIAL ONE; -MIRA33504 PO; -NEOSTIGMINE METHYLSULFATE 10 MG/10 ML VIAL IV PUSH ONE; -OXYC1TAB63 PO; -PERC5TAB12 PO; -PHENYLEPH/NS 1000 MCG/10 ML SYR IV ONE; -POTA10CA PO; -PROC20005 SQ; -PROPOFOL 200 MG/20 ML AMP IV ONE; -ROPIVACAINE 0.5% PF INJ 30 ML VIAL NB ONE; -SODIUM CHLORID 0.9% 500 ML INJ 500 ML IV ONE; -SODIUM CHLORID 0.9% 500 ML IV SCH; -VANCOMYCIN HCL 1000 MG VIAL ONE; -ePHEDrine/NS 25 MG/5 ML SYR IV ONE; -fentaNYL CITRATE 250 MCG/5 ML AMP ONE
[2017-01-09 09:45] VITALS: BP 177/79; PULSE 66; RESP 15; TEMP 97.9; O2SAT 99
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
[2017-01-09] MEDS ORDERED: METO100T9 PO (10:29)
[2017-01-09] MEDS ORDERED: ZOFR8TAB PO (10:29)
[2017-01-09] MEDS ORDERED: LISI-515 PO (10:29)
[2017-01-09] MEDS ORDERED: MINO10TA PO (10:29)
[2017-01-09] MEDS ORDERED: AMLO10TA2 PO (10:29)
[2017-01-09] MEDS ORDERED: DOCU100C PO (10:29)
[2017-01-09] MEDS ORDERED: ACET500T3 PO (10:29)
[2017-01-09] MEDS ORDERED: FURO40TA PO (10:29)
[2017-01-09] MEDS ORDERED: POTA10CA PO (10:29)
[2017-01-09] MEDS ORDERED: FERR1TAB7 PO (10:29)
[2017-01-09] MEDS ORDERED: OXYC1TAB63 PO (10:29)
[2017-01-09] MEDS ORDERED: SODIUM CHLORIDE 0.9% FLUSH 5 ML FLUSH IVF PRN (10:30)
[2017-01-09] MEDS ORDERED: DIATRIZOATE MEGLUM/DIATRIZOATE SOD 9 ML CUP ONE (10:36)
--- NOTE | 2017-01-09 11:06 | RADRPT ---
EXAM DATE/TIME: 01/09/2017 10:31 [facility] COMPARISON: CHEST SINGLE AP, December 10, 2016, 8:18. INDICATIONS : Upper right abdomen pain with distention. Hernia surgery 3-17. MEDICAL HISTORY : None. SURGICAL HISTORY : Hernia right ENCOUNTER: Initial ACUITY: 3 days PAIN SCORE: 10/10 LOCATION: Right abdomen. FINDINGS: A single view of the chest demonstrates the lungs to be symmetrically aerated without evidence of mas s, infiltrate or effusion. The cardiomediastinal contours are prominent. Osseous structures are inta ct. CONCLUSION: 1. No acute findings. Mild cardiomegaly. Hugo Cohen MD on January 09, 2017 at 11:03 Board Certified Radiologist. This report was verified electronically.
[2017-01-09 11:24] LABS: ALKALINE PHOSPHATASE 180 U/L (45-117); ALT (GPT) 24 U/L (12-78); TOTAL BILIRUBIN ADULT 0.5 MG/DL (0.2-1.0)
[2017-01-09 11:43] LABS: AUTOMATED NEUTROPHIL # 3.1 TH/MM3 (1.8-7.7); BASOPHIL # 0.1 TH/MM3 (0-0.2); BASOPHIL % 1.2 % (0.0-2.0); EOSINOPHIL # 0.1 TH/MM3 (0-0.4); EOSINOPHIL % 2.1 % (0.0-4.0); HEMATOCRIT 27.5 % (39.0-51.0); HEMO FLAGS DIFF FINAL; LYMPH % 22.9 % (9.0-44.0); LYMPHOCYTE # 1.1 TH/MM3 (1.0-4.8); MEAN CELL VOLUME 89.3 FL (80.0-100.0); MEAN CORPUSCULAR HEMOGLOBIN 30.7 PG (27.0-34.0); MEAN CORPUSCULAR HGB CONC 34.4 % (32.0-36.0); MONO % 8.3 % (0.0-8.0); NEUT % 65.5 % (16.0-70.0); PLATELET COUNT 108 TH/MM3 (150-450); RED BLOOD COUNT 3.07 MIL/MM3 (4.50-5.90); WHITE BLOOD COUNT 4.7 TH/MM3 (4.0-11.0)
[2017-01-09 12:17] LABS: ANION GAP 10 MEQ/L (5-15); AST (GOT) 39 U/L (15-37); BICARBONATE 25.4 MEQ/L (21.0-32.0); BLOOD UREA NITROGEN 48 MG/DL (7-18); CHLORIDE 106 MEQ/L (98-107); GLOMERULAR FILTRATION RATE 16 ML/MIN (>89); POTASSIUM 4.9 MEQ/L (3.5-5.1); SODIUM (NA) 141 MEQ/L (136-145)
--- NOTE | 2017-01-09 13:39 | RADRPT ---
EXAM DATE/TIME: 01/09/2017 11:58 [facility] COMPARISON: CT ABDOMEN & PELVIS W/O CONTRAST, November 11, 2016, 17:36. INDICATIONS : Abdomen bloating and diffuse pain since left inguinal hernia surgery. ORAL CONTRAST: Prescribed oral contrast ingested. RADIATION DOSE: 12.75 CTDIvol (mGy) MEDICAL HISTORY : Cardiovascular disease. Hypertension. Diabetes,renal failure SURGICAL HISTORY : Inguinal hernia repair. ENCOUNTER: Initial ACUITY: 1 month PAIN SCALE: 6/10 LOCATION: Abdomen TECHNIQUE: Volumetric scanning of the abdomen and pelvis was performed. Using automated exposure control and ad justment of the mA and/or kV according to patient size, radiation dose was kept as low as reasonably achievable to obtain optimal diagnostic quality images. FINDINGS: Lung bases are clear except for minimal dependent atelectasis. Again seen are changes of liver cirrhosis with surface nodularity. There is moderate ascites, especia lly around the liver and also extending into the pelvis. No focal lesions identified the spleen, adrenals, kidneys or pancreas. There are extensive vascular c alcifications. There is no bowel obstruction. There is no free air. There is colonic diverticulosis without evidence for diverticulitis. There are degenerative changes in the spine. There is mild to moderate anasarca. CONCLUSION: 1. Liver cirrhosis with moderate ascites. No bowel obstruction or free air. 2. Colonic diverticulosis without evidence for diverticulitis. 3. Minimal basal atelectasis in the lungs. 4. Left inguinal hernia containing fluid, similar in appearance to November 2016. 5. Mild to moderate anasarca. Hugo Cohen MD on January 09, 2017 at 13:34 Board Certified Radiologist. This report was verified electronically.
[2017-01-09 13:53] VITALS: BP 178/78; PULSE 65; RESP 18; O2SAT 99
[2017-02-13] MEDS ORDERED: LACT10SO PO (06:25)
[2017-04-02] MEDS ORDERED: FURO40TA PO (09:16)
[2017-04-02] MEDS ORDERED: FERR200T PO (09:20)
[2017-04-02] MEDS ORDERED: GABA100C4 PO (09:22)
[2017-04-02] MEDS ORDERED: PROC20005 SQ (09:49)
== END 2017-01-09 14:16 | disposition home or self-care (01) ==
LOC: NEPA 09:44
DX: K70.31 Alcoholic cirrhosis of liver with ascites (principal); K57.30 Diverticulosis of large intestine without perforation or abscess without bleeding; J98.11 Atelectasis; K40.90 Unilateral inguinal hernia, without obstruction or gangrene, not specified as recurrent; R60.1 Generalized edema; I10 Essential (primary) hypertension; Z72.0 Tobacco use
CPT/HCPCS: 71010; 74176; 80053; 85025; 99284; Q9963

== ENCOUNTER 2017-01-22 08:47 | Emergency (ER) | payer MEDICAID ==
[~2017-01-22] VITALS: Ht 170.2 cm; Wt 85.0 kg
[~2017-01-22 08:47] MED LIST changes: +ACET500T3 PO; -AMLO10 PO; +AMLO10TA2 PO; -BLOOD PRESSURE; +DOCU100C PO; +FERR1TAB7 PO; -FERR325T PO; -Glucometer; +LISI-515 PO; +OXYC1TAB63 PO; +POTA10CA PO; -POTA10TA2 PO; -PRIN20TA2 PO; -[UNRECOGNIZED DRUG - SUPPLY]; -[UNRECOGNIZED DRUG - SUPPLY]; -[UNRECOGNIZED DRUG - SUPPLY]; -[UNRECOGNIZED DRUG - SUPPLY] TOP
[2017-01-22 08:49] VITALS: BP 167/77; PULSE 62; RESP 16; TEMP 98; O2SAT 96
[2017-01-22 09:02] VITALS: BP 220/93; PULSE 66; RESP 20; TEMP 98.1; O2SAT 98
[2017-01-22 09:41] LABS: AUTOMATED NEUTROPHIL # 2.8 TH/MM3 (1.8-7.7); BASOPHIL % 0.8 % (0.0-2.0); EOSINOPHIL # 0.1 TH/MM3 (0-0.4); EOSINOPHIL % 3.2 % (0.0-4.0); HEMATOCRIT 27.6 % (39.0-51.0); HEMO FLAGS DIFF FINAL; LYMPH % 20.7 % (9.0-44.0); LYMPHOCYTE # 0.9 TH/MM3 (1.0-4.8); MEAN CELL VOLUME 92.4 FL (80.0-100.0); MEAN CORPUSCULAR HEMOGLOBIN 32.6 PG (27.0-34.0); MEAN CORPUSCULAR HGB CONC 35.3 % (32.0-36.0); MONO % 8.1 % (0.0-8.0); NEUT % 67.2 % (16.0-70.0); PLATELET COUNT 125 TH/MM3 (150-450); RED BLOOD COUNT 2.99 MIL/MM3 (4.50-5.90); RED CELL DISTRIBUTION WIDTH 15.1 % (11.6-17.2); WHITE BLOOD COUNT 4.2 TH/MM3 (4.0-11.0)
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
[2017-01-22 09:49] LABS: APTT (PATIENT) 29.1 SEC (24.3-30.1); INTERNATIONAL NORMALIZED RATIO 1.1 RATIO
[2017-01-22 09:57] LABS: ANION GAP 7 MEQ/L (5-15); AST (GOT) 35 U/L (15-37); BICARBONATE 26.9 MEQ/L (21.0-32.0); BLOOD UREA NITROGEN 52 MG/DL (7-18); CHLORIDE 105 MEQ/L (98-107); GLOMERULAR FILTRATION RATE 15 ML/MIN (>89); POTASSIUM 4.4 MEQ/L (3.5-5.1); SODIUM (NA) 139 MEQ/L (136-145)
[2017-01-22] MEDS ORDERED: LISINOPRIL 20 MG TAB PO ONE (10:00)
[2017-01-22 10:01] LABS: ALKALINE PHOSPHATASE 188 U/L (45-117); ALT (GPT) 28 U/L (12-78); TOTAL BILIRUBIN ADULT 0.5 MG/DL (0.2-1.0)
[2017-01-22 10:18] VITALS: BP 175/74
[2017-02-13] MEDS ORDERED: LACT10SO PO (06:25)
[2017-04-02] MEDS ORDERED: FURO40TA PO (09:16)
[2017-04-02] MEDS ORDERED: FERR200T PO (09:20)
[2017-04-02] MEDS ORDERED: GABA100C4 PO (09:22)
[2017-04-02] MEDS ORDERED: PROC20005 SQ (09:49)
== END 2017-01-22 10:26 | disposition home or self-care (01) ==
LOC: NEPA 08:47
DX: R18.8 Other ascites (principal); E11.22 Type 2 diabetes mellitus with diabetic chronic kidney disease; I12.9 Hypertensive chronic kidney disease with stage 1 through stage 4 chronic kidney disease, or unspecified chronic kidney disease; K74.60 Unspecified cirrhosis of liver; F17.220 Nicotine dependence, chewing tobacco, uncomplicated; D64.9 Anemia, unspecified
CPT/HCPCS: 80053; 85025; 85610; 85730; 99284

== ENCOUNTER 2017-01-24 08:01 | Day surgery (SDC) | payer MEDICAID ==
[~2017-01-24 08:01] MED LIST changes: -LONITEN; -OXYC1TAB63 PO
[2017-01-24 08:56] VITALS: BP 179/69; PULSE 65; RESP 16; TEMP 97.3; O2SAT 97
[2017-01-24 10:05] VITALS: BP 173/82; PULSE 60; RESP 18; O2SAT 91
[2017-01-24 10:20] VITALS: BP 181/84; PULSE 63; RESP 18; O2SAT 96
[2017-01-24 10:42] VITALS: BP 170/83; PULSE 62; RESP 18; O2SAT 95
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
[2017-01-24 12:04] LABS: PERITONEAL WBC 610 /MM3 (0-10)
[2017-01-24 12:05] LABS: PERITONEAL HISTIOCYTES 34 %; PERITONEAL LYMPHS 34 %; PERITONEAL MESOTHELIAL 14 %; PERITONEAL MONOS 4 %; PERITONEAL POLYS(SEGS) 14 %
[2017-02-13] MEDS ORDERED: LACT10SO PO (06:25)
[2017-04-02] MEDS ORDERED: FURO40TA PO (09:16)
[2017-04-02] MEDS ORDERED: FERR200T PO (09:20)
[2017-04-02] MEDS ORDERED: GABA100C4 PO (09:22)
[2017-04-02] MEDS ORDERED: PROC20005 SQ (09:49)
== END 2017-01-24 11:00 | disposition home or self-care (01) ==
LOC: HRAD 08:01 → HRIP 08:02 → HRAD 11:00
PROVIDERS: ATTEND Emergency Medicine
DX: R18.8 Other ascites (principal); K74.60 Unspecified cirrhosis of liver; E11.9 Type 2 diabetes mellitus without complications; Z86.19 Personal history of other infectious and parasitic diseases
CPT/HCPCS: 49083; 82042; 82150; 82945; 83615; 84157; 87070; 87205; 89051; C1729

== ENCOUNTER → 2017-02-10 | Outpatient (CLI) | payer MEDICAID ==
[~2017-02-10] MED LIST changes: +FERR200T PO; +GABA100C4 PO; +LACT10SO PO; +PROC20005 SQ
[2017-02-10 10:52] LABS: HEMATOCRIT 29.1 % (39.0-51.0); MEAN CELL VOLUME 90.7 FL (80.0-100.0); MEAN CORPUSCULAR HEMOGLOBIN 29.9 PG (27.0-34.0); PLATELET COUNT 106 TH/MM3 (150-450); RED BLOOD COUNT 3.21 MIL/MM3 (4.50-5.90); RED CELL DISTRIBUTION WIDTH 15.1 % (11.6-17.2); REVIEW FLAG FINAL; WHITE BLOOD COUNT 4.2 TH/MM3 (4.0-11.0)
[2017-02-10 11:11] LABS: BICARBONATE 28.5 MEQ/L (21.0-32.0); POTASSIUM 4.7 MEQ/L (3.5-5.1)
== END ==
LOC: CPRE 10:23
PROVIDERS: ATTEND Surgery
DX: Z01.812 Encounter for preprocedural laboratory examination (principal); N18.6 End stage renal disease
CPT/HCPCS: 36415; 80048; 85027

== ENCOUNTER → 2017-02-13 | Day surgery (SDC) | payer MEDICAID ==
[~2017-02-13] VITALS: Ht 170.2 cm; Wt 89.9 kg
[~2017-02-13] MED LIST changes: -ACET500T3 PO; +BUPIVACAINE/EPINEPHRINE 0.25% PF 30 ML VIAL ONE; +BUPIVACAINE/EPINEPHRINE 0.5% 50 ML VIAL ONE; +CHLORHEXIDINE GLUCONATE 2 % 1 PACK (2 CLOTHS) TOPICAL PRN; +FAMOTIDINE 20 MG/2 ML VIAL ONE; +GELFOAM SIZE 100 ONE; +HEPARIN SODIUM - IV 10,000 UNITS/10 ML VIAL ONE; +HEPARIN SODIUM - SQ 10,000 UNITS/ML VIAL ONE; +INSULIN HUMAN REGULAR 1,000 UNITS/10 ML VIAL SQ PRN; +LACTATED RINGER'S 1000 ML IV PRN; +METOPROLOL TARTRATE 25 MG TAB PO PRN; +MIDAZOLAM HCL 2 MG/2 ML VIAL ONE; +ONDANSETRON HCL 4 MG/2 ML VIAL ONE; +POVIDONE IODINE 5% (ANTISEPSIS KIT) 4 APPLICATIONS EACH NARE PRN; +PROPOFOL 200 MG/20 ML AMP IV ONE; +PROTAMINE SULFATE 50 MG/5 ML VIAL ONE; +SODIUM CHLOR 0.9% 250 ML INJ 250 ML ONE; +SODIUM CHLORID 0.9% 500 ML IV PRN; +THROMBIN (TOPICAL) 5,000 UNIT VIAL ONE; +VANCOMYCIN HCL 1000 MG VIAL ONE; +ceFAZolin INJ 1,000 MG VIAL ONE; +ePHEDrine/NS 25 MG/5 ML SYR IV ONE; +fentaNYL CITRATE 250 MCG/5 ML AMP ONE
[2017-02-13 06:36] VITALS: BP 150/66; PULSE 63; RESP 18; TEMP 98; O2SAT 97
[2017-02-13 10:15] VITALS: BP 171/72; PULSE 74; RESP 18; TEMP 97.8; O2SAT 96
--- NOTE | 2017-02-14 17:28 | MP ---
cc: SRAVAN GARRISON DATE OF SURGERY 02/13/17 PREOPERATIVE DIAGNOSIS End-stage renal disease POSTOPERATIVE DIAGNOSIS End-stage renal disease PROCEDURE Right upper extremity AV fistula revision IV FLUIDS 200 mL ESTIMATED BLOOD LOSS Minimal ANESTHESIA MAC, general LMA and Lidocaine used 4 mL of 0.25% Marcaine with epinephrine PROCEDURE IN DETAIL The patient's right upper extremity was prepped and draped in sterile fashion after given perioperative IV antibiotics. I made a small incision over the distal aspect volar surface of the right upper extremity in the area of my anastomosis. It should be noted that he I used a scalpel and electrocautery. I used a right angle in order to dissect out a small branch that was stealing significant blood flow by ultrasound and not allowing for maturation of this fistula. I used two 2-0 silk ties and some small clips and divided this branch making sure to maintain blood flow through the cephalic vein. It should be noted that after I divided it there was good blood flow through it so I closed in layers with a 2-0 Vicryl and then a 4-0 Monocryl and placed Dermabond over the skin. The patient tolerated procedure well. DO MARIO Guaman/ /8:48 AM /5:24 PM
== END | disposition home or self-care (01) ==
LOC: HSDC 05:19
PROVIDERS: ATTEND Surgery
DX: N18.6 End stage renal disease (principal)
CPT/HCPCS: 01844; 36832; 76937; 84132; 86850; 86900; 86901; J0690; J1644; J2250; J2405; J3010; J7040; J2720; J3370; J7050

== ENCOUNTER 2017-02-26 06:45 | Emergency (ER) | payer MEDICAID ==
[~2017-02-26] VITALS: Ht 180.3 cm; Wt 78.0 kg
[~2017-02-26 06:45] MED LIST changes: -BUPIVACAINE/EPINEPHRINE 0.25% PF 30 ML VIAL ONE; -BUPIVACAINE/EPINEPHRINE 0.5% 50 ML VIAL ONE; -CHLORHEXIDINE GLUCONATE 2 % 1 PACK (2 CLOTHS) TOPICAL PRN; -FAMOTIDINE 20 MG/2 ML VIAL ONE; -FERR200T PO; -GABA100C4 PO; -GELFOAM SIZE 100 ONE; -HEPARIN SODIUM - IV 10,000 UNITS/10 ML VIAL ONE; -HEPARIN SODIUM - SQ 10,000 UNITS/ML VIAL ONE; -INSULIN HUMAN REGULAR 1,000 UNITS/10 ML VIAL SQ PRN; -LACTATED RINGER'S 1000 ML IV PRN; -METOPROLOL TARTRATE 25 MG TAB PO PRN; -MIDAZOLAM HCL 2 MG/2 ML VIAL ONE; -ONDANSETRON HCL 4 MG/2 ML VIAL ONE; -POVIDONE IODINE 5% (ANTISEPSIS KIT) 4 APPLICATIONS EACH NARE PRN; -PROC20005 SQ; -PROPOFOL 200 MG/20 ML AMP IV ONE; -PROTAMINE SULFATE 50 MG/5 ML VIAL ONE; -SODIUM CHLOR 0.9% 250 ML INJ 250 ML ONE; -SODIUM CHLORID 0.9% 500 ML IV PRN; -THROMBIN (TOPICAL) 5,000 UNIT VIAL ONE; -VANCOMYCIN HCL 1000 MG VIAL ONE; -ceFAZolin INJ 1,000 MG VIAL ONE; -ePHEDrine/NS 25 MG/5 ML SYR IV ONE; -fentaNYL CITRATE 250 MCG/5 ML AMP ONE
[2017-02-26 06:48] VITALS: BP 194/84; PULSE 61; RESP 16; TEMP 98.2; O2SAT 99
[2017-02-26] MEDS ORDERED: SODIUM CHLORIDE 0.9% FLUSH 10 ML FLUSH IV FLUSH PRN (07:15)
[2017-02-26 07:22] VITALS: BP 193/90; PULSE 58; RESP 18; O2SAT 100
[2017-02-26 07:33] LABS: AUTOMATED NEUTROPHIL # 2.9 TH/MM3 (1.8-7.7); BASOPHIL % 0.8 % (0.0-2.0); EOSINOPHIL # 0.2 TH/MM3 (0-0.4); EOSINOPHIL % 3.3 % (0.0-4.0); HEMO FLAGS DIFF FINAL; LYMPH % 21.7 % (9.0-44.0); MEAN CELL VOLUME 91.2 FL (80.0-100.0); MEAN CORPUSCULAR HEMOGLOBIN 31.9 PG (27.0-34.0); MONO % 10.1 % (0.0-8.0); NEUT % 64.1 % (16.0-70.0); PLATELET COUNT 115 TH/MM3 (150-450); RED BLOOD COUNT 3.07 MIL/MM3 (4.50-5.90); RED CELL DISTRIBUTION WIDTH 15.4 % (11.6-17.2); WHITE BLOOD COUNT 4.5 TH/MM3 (4.0-11.0)
[2017-02-26 07:42] LABS: APTT (PATIENT) 28.1 SEC (24.3-30.1); PROTHROMBIN TIME - PATIENT 11.5 SEC (9.8-11.6)
[2017-02-26 07:52] LABS: ALKALINE PHOSPHATASE 244 U/L (45-117); ALT (GPT) 33 U/L (12-78); ANION GAP 9 MEQ/L (5-15); AST (GOT) 53 U/L (15-37); BICARBONATE 24.2 MEQ/L (21.0-32.0); BLOOD UREA NITROGEN 63 MG/DL (7-18); CHLORIDE 107 MEQ/L (98-107); GLOMERULAR FILTRATION RATE 14 ML/MIN (>89); POTASSIUM 4.7 MEQ/L (3.5-5.1); SODIUM (NA) 140 MEQ/L (136-145); TOTAL BILIRUBIN ADULT 0.5 MG/DL (0.2-1.0)
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
[2017-02-26 08:55] VITALS: BP 179/72; PULSE 62; RESP 16; TEMP 97.3; O2SAT 98
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
[2017-04-02] MEDS ORDERED: FURO40TA PO (09:16)
[2017-04-02] MEDS ORDERED: FERR200T PO (09:20)
[2017-04-02] MEDS ORDERED: GABA100C4 PO (09:22)
[2017-04-02] MEDS ORDERED: PROC20005 SQ (09:49)
== END 2017-02-26 09:36 | disposition home or self-care (01) ==
LOC: NEPE 06:45
DX: R18.8 Other ascites (principal); K74.60 Unspecified cirrhosis of liver; E11.9 Type 2 diabetes mellitus without complications; I12.9 Hypertensive chronic kidney disease with stage 1 through stage 4 chronic kidney disease, or unspecified chronic kidney disease; N18.9 Chronic kidney disease, unspecified; H91.90 Unspecified hearing loss, unspecified ear; Z79.84 Long term (current) use of oral hypoglycemic drugs; Z86.2 Personal history of diseases of the blood and blood-forming organs and certain disorders involving the immune mechanism; Z86.59 Personal history of other mental and behavioral disorders; Z86.79 Personal history of other diseases of the circulatory system; Z87.448 Personal history of other diseases of urinary system; Z86.19 Personal history of other infectious and parasitic diseases; Z86.69 Personal history of other diseases of the nervous system and sense organs
CPT/HCPCS: 76705; 80053; 83690; 85025; 85610; 85730

== ENCOUNTER 2017-04-04 19:22 | Emergency (ER) | payer MEDICAID ==
[~2017-04-04] VITALS: Ht 175.3 cm; Wt 88.0 kg
[~2017-04-04 19:22] MED LIST changes: -FERR1TAB7 PO; +FERR200T PO; +GABA100C4 PO; +PROC20005 SQ
[2017-04-04 19:30] VITALS: BP 196/89; PULSE 73; RESP 16; TEMP 98.8; O2SAT 98
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
== END 2017-04-04 21:48 | disposition home or self-care (01) ==
LOC: NEPE 19:22
DX: K70.31 Alcoholic cirrhosis of liver with ascites (principal); K59.00 Constipation, unspecified; D64.9 Anemia, unspecified; E11.9 Type 2 diabetes mellitus without complications; I10 Essential (primary) hypertension
CPT/HCPCS: 99281

== ENCOUNTER 2017-04-07 09:49 | Day surgery (SDC) | payer MEDICAID ==
[2017-04-07 10:45] VITALS: BP 176/73; PULSE 65; RESP 18; TEMP 98; O2SAT 100
[2017-04-07 11:45] VITALS: BP 156/71; PULSE 65; RESP 20; TEMP 97.7; O2SAT 91
[2017-04-07 12:00] VITALS: BP 176/85; PULSE 64; RESP 16; TEMP 97.7; O2SAT 97
[2017-04-07 12:15] VITALS: BP 187/93; PULSE 64; RESP 16; O2SAT 97
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
[2017-04-07] MEDS ORDERED: LIDOCAINE HCL 1% PF 30 ML VIAL ONE (14:11)
== END 2017-04-07 12:28 | disposition home or self-care (01) ==
LOC: HRAD 09:49 → HRIP 09:53 → HRAD 12:28
PROVIDERS: ATTEND Internal Medicine Nephrology
DX: K74.60 Unspecified cirrhosis of liver (principal); B19.20 Unspecified viral hepatitis C without hepatic coma; I10 Essential (primary) hypertension; E11.51 Type 2 diabetes mellitus with diabetic peripheral angiopathy without gangrene; E11.40 Type 2 diabetes mellitus with diabetic neuropathy, unspecified; D64.9 Anemia, unspecified; F32.9 Major depressive disorder, single episode, unspecified; F41.9 Anxiety disorder, unspecified; I12.9 Hypertensive chronic kidney disease with stage 1 through stage 4 chronic kidney disease, or unspecified chronic kidney disease; E11.22 Type 2 diabetes mellitus with diabetic chronic kidney disease; N18.9 Chronic kidney disease, unspecified
CPT/HCPCS: 49083; C1729